=== PATIENT | male | born 1955 | race Caucasian/White ===

== ENCOUNTER 2017-12-03 21:45 | Emergency (ER) | payer MEDICAID ==
[~2017-12-03] VITALS: Ht 180.3 cm; Wt 118.0 kg
[~2017-12-03 21:45] MED LIST: CEFU1TAB43 PO; FENO145T2 PO; HYDR-2768 PO; MINO100T PO; OMEP20TA39 PO; PERC10TA27 PO; PROM25TA5 PO; RIVA20 PO
[2017-12-03 21:49] VITALS: BP 182/94; PULSE 90; RESP 20; TEMP 98.2; O2SAT 96
[2017-12-03 22:04] VITALS: BP 139/82; PULSE 91; RESP 16; O2SAT 93
--- NOTE | 2017-12-03 22:29 | PD ---
HPI Chief Complaint: Pain: Acute or Chronic Time Seen by Provider: 22:21 Travel History International Travel<30 days: No Contact w/Intl Traveler<30days: No Traveled to known affect area: No History of Present Illness HPI The patient is a 62-year-old male that complains of right rib pain, right pleuritic chest pain for 2 weeks. It is gotten worse in the last week. The patient does have a history of liver cancer and is on chemotherapy. The patient states that his Percocet 10 are not working. The patient is on Xarelto. He denies any fever. He denies any cough. He states the pain as a 9/ 10 and is sharp and pleuritic. He denies any hemoptysis. Dr. Cardoso already told him that he could expect pain in this area from a growing tumor of the liver. PFSH Past Medical History Arthritis: Yes (KNEES, ELBOWS, FINGERS) Autoimmune Disease: No Blood Disorders: No Cancer: Yes (ESOPHAGEAL/LIVER) Cardiovascular Problems: No Chemotherapy: Yes Diabetes: No Diminished Hearing: No Endocrine: No Gastrointestinal Disorders: Yes (ABD. PAIN-05/13/09) GERD: Yes Genitourinary: Yes Immune Disorder: No Implanted Vascular Access Dvce: No Musculoskeletal: No Neurologic: No Psychiatric: No Reproductive: No Respiratory: Yes (PE and COPD) Immunizations Current: No Radiation Therapy: No Renal Failure: Yes (KIDNEY INSUFFICIENCY LAST HOSPITAL VISIT) Sleep Apnea: Yes Thyroid Disease: No Influenza Vaccination: No Past Surgical History Abdominal Surgery: Yes (; APPENDECTOMY) Appendectomy: Yes Pacemaker: No Tonsillectomy: Yes Other Surgery: Yes Social History Alcohol Use: No (QUIT30 YRS AGO) Tobacco Use: No (QUIT 30 YRS AGO) Substance Use: No Allergies-Medications (Allergen,Severity, Reaction): Coded Allergies: No Known Allergies (Unverified Adverse Reaction, Unknown, 12/03/17) Reported Meds & Prescriptions Reported Meds & Active Scripts Active Minocycline Hcl (Minocycline HCl) 100 Mg Cap 100 Mg PO BID Ceftin 500 Mg Tab (Cefuroxime Axetil) 500 Mg Tab 500 Mg PO BID 5 Days Reported Xarelto 20 Mg Tab (Rivaroxaban) 20 Mg Tab 20 Mg PO DAILY Fenofibrate 145 Mg Tab 145 Mg PO DAILY Percocet 10/325 (Oxycodone/Acetaminophen) Oxycodone 10/325 Acetaminophen Tab 1 Tab PO Q6H Hm Omeprazole (Omeprazole) 20 Mg Tab 20 Mg PO DAILY Hctz (Hydrochlorothiazide) 25 Mg Tab 25 Mg PO DAILY Phenergan 25 mg (Promethazine HCl) 25 Mg Tab 25 Mg PO Q6H PRN Review of Systems Except as stated in HPI: all other systems reviewed are Neg Physical Exam Narrative GENERAL: Well-nourished, well-developed patient in moderate apparent distress with his right chest pain. His vital signs after repeat blood pressure show pulse of 91 and oximetry of 93% but otherwise are normal. SKIN: Focused skin assessment warm/dry. HEAD: Normocephalic. EYES: No scleral icterus. No injection or drainage. NECK: Supple, trachea midline. No JVD or lymphadenopathy. CARDIOVASCULAR: Regular rate and rhythm without murmurs, gallops, or rubs. RESPIRATORY: Breath sounds equal bilaterally. No accessory muscle use. GASTROINTESTINAL: Abdomen soft, non-tender, nondistended. MUSCULOSKELETAL: No cyanosis, or edema. BACK: Nontender without obvious deformity. No CVA tenderness. Data Data Last Documented VS Vital Signs Date Time Temp Pulse Resp B/P (MAP) Pulse Ox O2 Delivery O2 Flow Rate FiO2 12/03/17 22:04 91 16 139/82 (101) 93 Room Air 12/03/17 21:49 98.2 Orders Orders Chest, Pa & Lat (12/03/17 22:23) [facility] Medical Decision Making Medical Screen Exam Complete: Yes Emergency Medical Condition: Yes Medical Record Reviewed: Yes Interpretation(s) The PA and lateral chest x-ray shows under inflated examination with atelectasis of the lung bases. There is otherwise no acute cardiopulmonary disease. Differential Diagnosis Pleural effusion, pneumothorax, metastases to ribs, rib fracture, atelectasis, tumor pain Narrative Course The patient likely has pain from his metastatic liver disease. He will be given Percocet 10 prescription and follow-up with Dr. Cardoso. Diagnosis Primary Impression: Tumor associated pain Med/Other Pt SpecificInfo: Prescription(s) given Scripts Oxycodone-Acetaminophen (Percocet) 10-325 mg Tab 1 TAB PO Q4H Y for PAIN, #30 TAB 0 Refills Prov: Garrison Hansen MD 12/04/17 Disposition: 01 DISCHARGE HOME Condition: Stable Garrison Hansen MD Dec 03, 2017 22:29
--- NOTE | 2017-12-03 23:25 | RADRPT ---
EXAM DATE/TIME: 12/03/2017 23:08 [facility] COMPARISON: CHEST PA & LAT, December 27, 2015, 17:03. INDICATIONS : Shortness of breath. MEDICAL HISTORY : None. SURGICAL HISTORY : None. ENCOUNTER: Initial ACUITY: 1 day PAIN SCORE: 0/10 LOCATION: Bilateral chest FINDINGS: Frontal and lateral views of the chest demonstrate a normal-sized cardiac silhouette. Right chest wal l [id number] remains present. The lungs remain underinflated with most likely atelectasis at the l rich bases. No pneumothorax or pleural effusion is identified. The bones and soft tissues demonstrate no acute finding. CONCLUSION: Underinflated examination with atelectasis at the lung bases. Otherwise, no acute cardiopulmonary abn ormality is identified. Joseph Mohr MD on December 03, 2017 at 23:23 Board Certified Radiologist. This report was verified electronically.
[2017-12-04] MEDS ORDERED: PERC10TA27 PO
[2017-12-04 00:18] VITALS: BP 132/84
== END 2017-12-04 00:20 | disposition home or self-care (01) ==
LOC: PHED 21:45
DX: R07.81 Pleurodynia (principal); K21.9 Gastro-esophageal reflux disease without esophagitis; J44.9 Chronic obstructive pulmonary disease, unspecified; Z86.711 Personal history of pulmonary embolism; Z79.899 Other long term (current) drug therapy
CPT/HCPCS: 71046; 99283